=== PATIENT | male | born 1965 | race Caucasian/White ===

== ENCOUNTER 2016-04-19 05:15 | Emergency (ER) | payer SELFPAY ==
[2016-04-19 05:22] VITALS: BP 164/114
[2016-04-19 05:32] LABS: Urine Appearance Clear; Urine Bacteria None Seen; Urine Bilirubin Negative (NEGATIVE); Urine Blood Negative /ul (NEGATIVE); Urine Color Yellow; Urine Ketone 5 mg/dL (NEGATIVE); Urine Nitrite Negative (NEGATIVE); Urine Protein 15 mg/dL (NEGATIVE); Urine RBC 0-5 /hpf (0-5); Urine Urobilinogen Normal (NORMAL); Urine WBC 0-5 /hpf (0-5)
[2016-04-19] MEDS ORDERED: KETOROLAC TROMETHAMINE 30 MG/ML VIAL IV ONE (05:35)
[2016-04-19] MEDS ORDERED: KETOROLAC TROMETHAMINE 30 MG/ML VIAL ONE (05:38)
[2016-04-19 05:57] LABS: Hematocrit 47.4 % (42.0-52.0); Hemoglobin 16.1 gm/dL (13.5-18.0); Mean Cell Volume 88.8 fl (78-100); Mean Corpuscular Hemoglobin 30.1 pg (27-31); Mean Platelet Volume 9.3 fl (6.0-9.5); Neutrophil % 64.3 % (42-75.0); Platelet Count 252 K/mm3 (150-450); Red Blood Count 5.34 M/mm3 (4.7-6.0); Red Cell Distribution Width 13.4 % (11.5-14.0); White Blood Count 6.1 K/mm3 (4.0-10.5)
[2016-04-19 06:11] LABS: Albumin * 3.5 gm/dl (3.4-5.0); Anion Gap 17.1 mmol/L (6.8-13.8); Bilirubin, Total 0.5 mg/dL (0.0-1.1); Ca. Corrected For Albumin 8.6 mg/dL (8.4-10.2); Calcium * 8.5 mg/dL (7.9-10.9); Carbon Dioxide 24.7 mmol/L (24-32.6); Potassium 3.8 mmol/L (3.4-4.6); Total Protein 7.5 gm/dL (6.2-8.2)
--- OUTSIDE RECORDS SUMMARY | 2016-04-19 06:23 | XMS REPORT | Continuity of Care Document ---
:1965 Author Organization [facility] ([facility]) Address [place] [address] Phone [phone] Care Team Providers Name Role Phone Unavailable Primary Care Provider Unavailable Source Comments This disclosure is being made pursuant to the Care Everywhere program, applicable federal and state laws, and may not contain all informaitonavailable regarding this patient.[facility] ([facility]) Active Allergies and Adverse Reactions Not on File Current Medications Not on file Active Problems Not on file Social History Tobacco Use Types Packs/Day Years Used Date Never Assessed Plan of Care Health Maintenance Due Date Last Done Comments HCV Screening 1965 Hepatitis B Vaccine (1 of 3 - Primary Series) 1965 Tdap Vaccine 09/12/1974 Lipid Disorder Screening 09/12/1981 MMR Vaccine 09/12/1981 Td Vaccine 09/12/1981 Colonoscopy 09/12/2013 Prostate Cancer Screening 09/12/2013 Influenza Vaccine: Seasonal (#1) 09/19/2015 Results from Last 3 Months Not on file
--- NOTE | 2016-04-19 06:28 | ERNOTE ---
ER Male HPI Stated Complaint: KIDNEY STONE ER Male: other - right flank pain Time Seen by Provider: 04/19/16 05:30 Source: patient Exam Limitations: no limitations Immunizations: IMMUNIZATION HX Immunizations Up to Date Yes History of Influenza Vaccine Yes Allergies/Adverse Reactions: Allergies Penicillins Allergy (Verified 04/19/16 05:22) Home Medications: HOME MEDICATIONS Dicyclomine HCl [Bentyl] 10 mg PO TID PRN #10 capsule 04/19/16 [Last Taken Unknown] Metoprolol Succinate [Toprol Xl] 50 mg PO DAILY 04/19/16 [Last Taken Unknown] - History of Present Illness Narrative: has had flank pain onset 5 days ago stopped for 2 days and worsened again today Timing: Present: getting worse Quality: Present: moderate Onset Location: Present: right flank Radiation: Present: RLQ Activities at Onset: Present: none Prior Abdominal Problems: Present: none Review of Systems - Review of Systems EYE: Present: no symptoms reported ENT: Present: no symptoms reported Respiratory: Absent: shortness of breath, cough Cardiology: Absent: chest pain, palpitations Gastrointestinal/Abdominal: Present: nausea. Absent: diarrhea, constipation Genitourinary: Present: See HPI. Absent: dysuria Musculoskeletal: Present: back pain Skin: Present: no symptoms reported Neurological: Absent: weakness, numbness Endocrine: Present: no symptoms reported Hematologic/Lymphatic: Present: no symptoms reported Psych: Present: no symptoms reported - Patient's Past Medical History Patient History - Medical: No pertinent hx Patient History - Cardiac/Respiratory: Hypertension Patient History - Cancer: No Hx of Cancer - Social History Living Situations: home Smoking Status: Current every day smoker Patient requests Smoking Cessation Consult: No Initiate information on Smoking Cessation: No - Immunizations Immunizations Up to Date: Yes History of Influenza Vaccine: Yes Physical Exam - Physical Exam General Appearance: Present: wd/wn, alert, no apparent distress Neck: Present: normal inspection, nontender Respiratory: Present: no respiratory distress, normal breath sounds, lungs clear Cardiovascular/Chest: Present: regular rate, rhythm, no murmur, normal peripheral pulses Gastrointestinal/Abdominal: Present: normal bowel sounds, nontender, nondistended. Absent: guarding, rebound Back Exam: Present: CVA tenderness (R) - moderate Extremity Exam: Present: normal inspection, non-tender Neurological Exam: Present: alert, oriented, normal mood/affect, no motor/ sensory deficits Skin Exam: Present: normal color, warm/dry ED Progress - Results and Orders Patient's Lab Results:: I have reviewed the patient's lab results. Results and Orders: Laboratory Tests 04/19/16 04/19/16 04/19/16 05:27 05:50 05:50 WBC 6.1 Hgb 16.1 Hct 47.4 Plt Count 252 Sodium 136 Potassium 3.8 Chloride 98 Carbon Dioxide 24.7 BUN 12 Creatinine 0.86 Est GFR (Non-Af Amer) 99 Random Glucose 106 Calcium 8.5 Total Bilirubin 0.5 AST 102 H ALT 98 H Alkaline Phosphatase 117 Total Protein 7.5 Albumin 3.5 Urine Color Yellow Urine Appearance Clear Urine pH 6.0 Ur Specific [place] 1.020 Urine Protein 15 H Urine Glucose (UA) Negative Urine Ketones 5 Urine Blood Negative Urine Nitrate Negative Urine Bilirubin Negative Prot Sulfosalicylic Acd Negative Urine Urobilinogen Normal Ur Leukocyte Esterase Negative Urine RBC 0-5 Urine WBC 0-5 Ur Epithelial Cells 0-5 Urine Bacteria None seen Urine Culture Comments No culture indicated - Vital Signs Patient's Vital Signs:: I have reviewed the patient's vital signs. Vital Signs: Vital Signs 04/19/16 05:19 Temperature 36.5 C Pulse Rate 84 Respiratory 20 Rate Blood Pressure 164/114 O2 Sat by Pulse 99 Oximetry - X-Ray X-Ray #1 X-Ray: abdomen Interpretation: Interp. by me X-ray Comments: moderate stool retention throughout. No dilated bowel or a/f levels. No evidence of obstruction - Progress/Reassessment Chief Complaint: Genitourinary Problem Progress:: Improved Progress Note-Subjective: 04/19/16 06:40 discussed constipation, pt state he has a bottle of magnesium citrate at home and has used mag citrate previously for constipation. Departure Clinical Impression: Constipation Qualifiers: Constipation type: slow transit constipation Qualified Code(s): K59.01 - Slow transit constipation - Departure Disposition: Home self-care Condition: Good Instructions: Constipation, Adult, [id number] Additional Instructions: take magnesium citrate, half a bottle followed by a full glass of water. repeat in 6 hours if no results. Take bentyl as needed for abdominal cramping but only while getting cleaned out otherwise it may make you constipated again. Begin taking daily fiber or miralax to avoid constipation again Prescriptions: Dicyclomine HCl [Bentyl] 10 mg PO TID PRN #10 capsule PRN Reason: Pain
[2016-04-19] MEDS ORDERED: DICYCLOMINE HCL 10 MG/ML AMPUL IM ONE ×2 (06:37→06:47)
== END 2016-04-19 06:50 | disposition home or self-care (01) ==
LOC: ER 05:15
DX: K59.01 Slow transit constipation (principal); Z72.0 Tobacco use; I10 Essential (primary) hypertension

== ENCOUNTER 2017-01-14 16:33 | Emergency (ER) | payer SELFPAY ==
[2017-01-14 17:29] LABS: Urine Bilirubin Negative (NEGATIVE); Urine Ketone Negative (NEGATIVE); Urine Nitrite Negative (NEGATIVE); Urine Protein Negative (NEGATIVE); Urine Specific Gravity <=1.005 SP.GR. (1.005-1.030); Urine Urobilinogen Normal (NORMAL)
[2017-01-14] MEDS ORDERED: NICOTINE 21 MG PATC TD ONE (17:32)
[2017-01-14] MEDS ORDERED: NICOTINE 21 MG PATC TD SCH (17:45)
[2017-01-14 17:46] LABS: Hematocrit 46.3 % (42.0-52.0); Hemoglobin 16.3 gm/dL (13.5-18.0); Mean Cell Volume 88.4 fl (78-100); Mean Corpuscular Hemoglobin 31.1 pg (27-31); Mean Corpuscular Hgb Conc 35.2 g/dl (32-36); Mean Platelet Volume 8.6 fl (6.0-9.5); Neutrophil # 3.5 K/mm3 (1.3-6.0); Neutrophil % 53.3 % (42-75.0); Platelet Count 239 K/mm3 (150-450); Red Blood Count 5.24 M/mm3 (4.7-6.0); Red Cell Distribution Width 13.8 % (11.5-14.0); White Blood Count 6.5 K/mm3 (4.0-10.5)
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
[2017-01-14 17:59] LABS: Urine Appearance Clear; Urine Bacteria TRACE; Urine Blood 5 /ul (NEGATIVE); Urine Color Yellow; Urine RBC None Seen /hpf (0-5); Urine WBC None Seen /hpf (0-5)
[2017-01-14 18:07] LABS: Cocaine Ur Negative (NEGATIVE); Urine Barbiturate Negative (NEGATIVE); Urine Benzodiazepines Negative (NEGATIVE); Urine Opiates Negative (NEGATIVE); Urine PCP Negative (NEGATIVE); Urine THC Negative (NEGATIVE)
[2017-01-14 18:14] LABS: ALT 21 U/L (19-67); AST 31 U/L (0-48); Albumin * 3.5 gm/dl (3.4-5.0); Alkaline Phosphatase * 142 U/L (50-170); Anion Gap 16.6 mmol/L (6.8-13.8); BUN/Creatinine Ratio 13.3 (9.0-21.6); Bilirubin, Total 0.3 mg/dL (0.0-1.1); Blood Urea Nitrogen 11 mg/dL (6-23); Ca. Corrected For Albumin 8.2 mg/dL (8.4-10.2); Calcium * 8.1 mg/dL (7.9-10.9); Carbon Dioxide 26.9 mmol/L (24-32.6); Chloride 102 mmol/L (97-106); Glucose * 112 mg/dL (70-110); Magnesium 2.1 mg/dL (1.2-2.8); Potassium 3.5 mmol/L (3.4-4.6); Salicylate 5.5 mg/dL (2.8-20.0); Sodium 142 mmol/L (132-142); Total Protein 7.9 gm/dL (6.2-8.2)
[2017-01-14] MEDS ORDERED: THIAMINE HCL 100 MG/ML VIAL IM ONE (19:17)
[2017-01-14] MEDS ORDERED: THIAMINE HCL 100 MG/ML VIAL ONE (19:22)
[2017-01-15] MEDS ORDERED: METOPROLOL TARTRATE 25 MG TABLET PO ONE (09:23)
[2017-01-15] MEDS ORDERED: METOPROLOL TARTRATE 25 MG TABLET ONE (09:25)
[2017-01-15 12:35] VITALS: BP 176/84
== END 2017-01-15 12:49 | disposition short-term general hospital (02) ==
LOC: ER 16:33
DX: F10.10 Alcohol abuse, uncomplicated (principal); R45.851 Suicidal ideations; R45.850 Homicidal ideations; F10.920 Alcohol use, unspecified with intoxication, uncomplicated; F17.200 Nicotine dependence, unspecified, uncomplicated
CPT/HCPCS: 36415; 80053; 80307; 81001; 83735; 84443; 85025; 96372; 99285; G0480; G0481